=== PATIENT | female | born 1970 | race Caucasian/White ===

== ENCOUNTER 2017-08-16 10:28 | Emergency (ER) | payer BC ==
[2017-08-16 10:38] VITALS: BP 132/63
--- NOTE | 2017-08-19 13:06 | UC ---
Complaint Female HPI - HPI Summary HPI Summary: 47 YEAR OLD FEMALE PRESENTS WITH LOWER BACK PAIN AND BURNING WITH URINATION. - History Of Current Complaint Chief Complaint: UCGU Stated Complaint: LOW BACK/URINARY COMPLAINT Time Seen by Provider: 08/16/17 10:51 Hx Obtained From: Patient Hx Last Menstrual Period: NONE-ABLATION Onset/Duration: Sudden Onset Timing: Constant Severity Initially: Moderate Severity Currently: Moderate Pain Intensity: 4 Pain Scale Used: 0-10 Numeric - Allergies/Home Medications Allergies/Adverse Reactions: Allergies Allergy/AdvReac Type Severity Reaction Status Date / Time No Known Allergies Allergy Verified 08/16/17 10:38 Home Medications: Home Medications Dapagliflozin Propanediol [Farxiga] 10 mg PO DAILY 08/16/17 [History Confirmed 08/16/17] Linagliptin-Metformin HCl [Jentadueto 2.5-1000 mg] 1 tab PO BID 08/16/17 [ History Confirmed 08/16/17] PMH/Surg Hx/FS Hx/Imm Hx Previously Healthy: Yes - Surgical History Surgical History: Yes Surgery Procedure, Year, and Place: Novasure Uterine Ablation. Lithotripsy x 2. Cholecystectomy. Bilateral Carpal Tunnel Release. TEMPORAL ARTERY BIOPSY-- 2009 - Family History Known Family History: Positive: None, Hypertension - Social History Alcohol Use: Rare Substance Use Type: None Smoking Status (MU): Former Smoker Type: Cigarettes When Did the Patient Quit Smoking/Using Tobacco: quit over 20 years ago Household Exposure Type: Cigarettes - Immunization History Most Recent Influenza Vaccination: 08/2015 Review of Systems Constitutional: Negative Skin: Negative Eyes: Negative ENT: Negative Respiratory: Negative Cardiovascular: Negative Gastrointestinal: Negative Genitourinary: Frequency, Urgency Motor: Negative Neurovascular: Negative Musculoskeletal: Negative Neurological: Negative Psychological: Negative All Other Systems Reviewed And Are Negative: Yes Physical Exam Triage Information Reviewed: Yes Vital Signs: Initial Vital Signs Temp 36.3 C 08/16/17 10:34 Pulse 81 08/16/17 10:34 Resp 16 08/16/17 10:34 BP 132/63 08/16/17 10:34 Pulse Ox 99 08/16/17 10:34 Eye Exam: Normal ENT Exam: Normal Dental Exam: Normal Neck exam: Normal Neck: Positive: 1 Respiratory Exam: Normal Cardiovascular Exam: Normal Abdominal Exam: Normal Abdomen Description: Positive: CVA Tenderness (R), CVA Tenderness (L) Musculoskeletal Exam: Normal Neurological Exam: Normal Psychological Exam: Normal Skin Exam: Normal Complaint Female Dx - Differential Dx/Diagnosis Provider Diagnoses: UTI. CVA TENDERNESS Discharge - Discharge Plan Condition: Stable Disposition: HOME Prescriptions: Nitrofurantoin Monohyd Macro [Macrobid] 100 mg PO BID #14 cap Patient Education Materials: Urinary Tract Infection in Women (ED) Referrals: Miguel Cabral [Primary Care Provider] -
== END 2017-08-16 11:13 | disposition home or self-care (01) ==
LOC: UCCORT 10:28
DX: N39.0 Urinary tract infection, site not specified (principal); E11.9 Type 2 diabetes mellitus without complications
CPT/HCPCS: 81003; 87086; 99212; G0463

== ENCOUNTER 2018-10-11 13:21 | Emergency (ER) | payer BC, OTHER ==
[2018-10-11 13:59] VITALS: BP 116/77
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
== END 2018-10-11 15:13 | disposition home or self-care (01) ==
LOC: UCCORT 13:21
DX: S60.211A Contusion of right wrist, initial encounter (principal); S44.91XA Injury of unspecified nerve at shoulder and upper arm level, right arm, initial encounter; Y08.89XA Assault by other specified means, initial encounter; Y92.9 Unspecified place or not applicable; E11.9 Type 2 diabetes mellitus without complications; F17.210 Nicotine dependence, cigarettes, uncomplicated
CPT/HCPCS: 99212; G0463

== ENCOUNTER 2019-12-04 09:31 | Emergency (ER) | payer BC ==
[2019-12-04 10:16] VITALS: BP 135/74
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
[2019-12-04] MEDS ORDERED: Ketorolac INJ* 30 MG/ML 1 ML VIAL IM ONE (10:25)
== END 2019-12-04 11:11 | disposition home or self-care (01) ==
LOC: UCCORT 09:31
DX: S76.912A Strain of unspecified muscles, fascia and tendons at thigh level, left thigh, initial encounter (principal); M25.562 Pain in left knee; M17.12 Unilateral primary osteoarthritis, left knee; E11.9 Type 2 diabetes mellitus without complications; Z79.84 Long term (current) use of oral hypoglycemic drugs; Z87.891 Personal history of nicotine dependence; X58.XXXA Exposure to other specified factors, initial encounter; Y92.9 Unspecified place or not applicable
CPT/HCPCS: 96372; 99211; G0463; J1885

== ENCOUNTER 2021-07-09 07:30 | Inpatient (IN) ==
[~2021-07-09 07:30] MED LIST: Buffered Lidocaine 1% SYRIN 1 ml INTRADERM ONE; Lactated Ringers 1000 ml BAG 1,000 ML IV SCH
[2021-07-09] MEDS ORDERED: Heparin 5000 UNITS/ML 1 mL VIAL ONE (10:59)
[2021-07-09] MEDS ORDERED: ceFAZolin 1 GM ADVAN 1 GM ADDV.VIAL IVPB ONE (11:00)
[2021-07-09] MEDS ORDERED: ceFAZolin 2 GM in NS PREMIX 2 GM/100 ML BAG IVPB ONE (11:00)
[2021-07-09] MEDS ORDERED: Lidocaine 2% PF 5 ML VIAL ONE (13:38)
[2021-07-09] MEDS ORDERED: Midazolam 2 mg/2 ml VIAL 1 mg/ml 2 ml VIAL (2 mg) ONE (13:39)
[2021-07-09] MEDS ORDERED: fentaNYL 250 mcg/5 ml 50 MCG/ML 5 ml VIAL (250 MCG) ONE (13:39)
[2021-07-09] MEDS ORDERED: Rocuronium 50 mg VIAL 10 mg/ml 5 ml VIAL (50 mg) ONE ×2 (13:39→15:18)
[2021-07-09] MEDS ORDERED: Propofol 10 MG/ML 20 ML BTL ONE (13:39)
[2021-07-09] MEDS ORDERED: Dexamethasone IV 4 MG/ML VIAL 1 ml VIAL ONE (15:17)
[2021-07-09] MEDS ORDERED: Ondansetron 4 mg VIAL 2 MG/ML 2 ml VIAL ONE (15:17)
[2021-07-09] MEDS ORDERED: HYDROmorphone 1 MG/1 ML SYRINGE ONE (15:40)
[2021-07-09] MEDS ORDERED: Ondansetron 4 mg VIAL 2 MG/ML 2 ml VIAL IV PRN (16:35)
[2021-07-09] MEDS ORDERED: HYDROmorphone 1 MG/1 ML SYRINGE IV SLOW PU PRN (16:40)
[2021-07-09] MEDS ORDERED: diPHENhydraMINE IV 50 MG/ML 1 ml VIAL (BENADRYL) SLOW PUSH PRN (16:40)
[2021-07-09] MEDS ORDERED: HYDROcodone/ACET. 7.5/325 LIQ 15 ML UDC PO PRN (16:40)
[2021-07-09] MEDS ORDERED: HYDROmorphone 0.5 MG/0.5 ML SYRINGE IV SLOW PU PRN (16:40)
[2021-07-09] MEDS ORDERED: fentaNYL 100 mcg/2 ml 50 MCG/ML VIAL IV PRN (16:43)
[2021-07-09] MEDS ORDERED: HYDROmorphone 1 MG/1 ML SYRINGE IV PRN (16:43)
[2021-07-09] MEDS ORDERED: DiMENhydriNATE IV 50 mg/ml 1 ml VIAL IV PUSH PRN (16:43)
[2021-07-09] MEDS ORDERED: diPHENhydraMINE IV 50 MG/ML 1 ml VIAL (BENADRYL) IV PRN (16:43)
[2021-07-09] MEDS ORDERED: Fluticasone NASAL SPRAY 50MCG 16 gm SPRAY BTL INTRANASAL PRN (16:43)
[2021-07-09] MEDS ORDERED: Naloxone 0.4 mg VIAL 0.4 mg/ml 1 ml VIAL IV PRN (16:43)
[2021-07-09] MEDS ORDERED: Saline NASAL SPRAY 0.65% BTL BOTH NARES PRN (16:43)
[2021-07-09] MEDS: Lactated Ringers 1000 ml BAG 1,000 ML IV SCH (18:18)
[2021-07-09] MEDS: Acetaminophen IV 1 GM/100ML 100 ML IV SCH (18:22)
[2021-07-09] MEDS: Famotidine IV 10 MG/ML 2 ml VIAL (20 mg) IV SLOW PU SCH (22:37)
[2021-07-09] MEDS: Heparin 5000 UNITS/ML 1 mL VIAL SUBCUT SCH (22:38)
[2021-07-10] MEDS: Acetaminophen IV 1 GM/100ML 100 ML IV SCH ×4 (00:15→18:40)
[2021-07-10] MEDS: Lactated Ringers 1000 ml BAG 1,000 ML IV SCH ×2 (02:34→09:42)
[2021-07-10] MEDS: Heparin 5000 UNITS/ML 1 mL VIAL SUBCUT SCH ×3 (06:12→21:33)
[2021-07-10] MEDS: Famotidine IV 10 MG/ML 2 ml VIAL (20 mg) IV SLOW PU SCH ×2 (08:19→21:31)
[2021-07-10] MEDS: D5W 1/2 NS KCl 20 meq 1000 ml 1,000 ML IV SCH (17:33)
[2021-07-11] MEDS: Acetaminophen IV 1 GM/100ML 100 ML IV SCH ×2 (00:43→06:16)
[2021-07-11] MEDS: D5W 1/2 NS KCl 20 meq 1000 ml 1,000 ML IV SCH (00:44)
[2021-07-11] MEDS: Heparin 5000 UNITS/ML 1 mL VIAL SUBCUT SCH (06:14)
[2021-07-11 07:47] VITALS: BP 118/81
[2021-07-11] MEDS: Famotidine IV 10 MG/ML 2 ml VIAL (20 mg) IV SLOW PU SCH (09:20)
[2021-07-12] MEDS ORDERED: Scopolamine PATCH Remove NOTE PATCH OFF SCH (17:00)
== END 2021-07-11 10:00 | disposition home or self-care (01) | DRG 403 ==
LOC: AA 10:05 → SSU 18:00
PROVIDERS: ADMIT Surgery; ATTEND Surgery